=== PATIENT | male | born 1995 | race Hispanic/Latino ===

== ENCOUNTER 2025-01-03 23:09 | Emergency (ER) | payer OTHER ==
[~2025-01-03] VITALS: Ht 188 cm; Wt 111.1 kg
[2025-01-03 23:32] VITALS: PULSE 95; RESP 20; TEMP 98.3; O2SAT 100
[2025-01-03] MEDS ORDERED: POLYMYXIN B-TMP10 ML OU (23:36)
[2025-01-03] MEDS ORDERED: AMOX TR-K CLV1 EAC1 PO (23:36)
[2025-01-03] MEDS ORDERED: PREDNISONE20 MG PO (23:36)
== END 2025-01-03 23:45 | disposition home or self-care (01) ==
LOC: ER 23:32
DX: H10.9 Unspecified conjunctivitis (principal); I10 Essential (primary) hypertension; E11.9 Type 2 diabetes mellitus without complications
CPT/HCPCS: 99282